=== PATIENT | female | born 1945 ===

== ENCOUNTER 2022-06-14 13:23 | Inpatient (IN) | payer MEDICARE, BC ==
[2022-06-14] MEDS ORDERED: Atropine Sulfate 1 mg/10 ml Syringe ONE ×2 (13:44→15:58)
[2022-06-14] MEDS ORDERED: DOBUTamine 500 mg/250 ml 0 ML ONE (14:32)
[2022-06-14 14:34] LABS: #Eosinphils 0.2 thou/uL (0.0-0.7); #Lymphocytes 0.8 thou/uL (1.20-3.40); #Monocytes 0.4 thou/uL (0.11-0.59); #Neutrophils 3.9 thou/uL (1.40-6.50); %Basophils 0.3 % (0.0-1.0); %Eosinophils 2.9 % (0.0-10.0); %Lymphocytes 15.8 % (21.0-51.0); %Monocytes 6.9 % (0.0-10.0); %Neutrophils 74.1 % (42.0-75.0); Hemoglobin 11.3 g/dL (12.0-16.0); Mean Corpuscular HGB CONC 32.3 g/dL (32.0-36.0); Mean Corpuscular Hemoglobin 32.3 pg (27.0-31.0); Mean Platelet Volume 8.6 fL (7.4-10.4); Platelet Count 247 10x3/uL (130-400); RBC Distribution Width 13.1 % (11.5-14.5); White Blood Cell (WBC) Count 5.2 10x3/uL (4.8-10.8)
[2022-06-14 14:49] LABS: ALT (SGPT) 22 U/L (8-55); AST (SGOT) 22 U/L (5-34); Albumin 3.6 g/dL (3.4-4.8); Alkaline Phosphatase 82 U/L (40-110); Anion Gap 13 mmol/L (10-20); BUN (Urea Nitrogen) 13 mg/dL (9.8-20.1); Bilirubin, Total 0.4 mg/dL (0.2-1.2); Calc. Creatinine Clearance 0 mL/min (70-130); Calcium 9.7 mg/dL (7.8-10.44); Carbon Dioxide 24 mmol/L (23-31); Chloride 101 mmol/L (98-107); Estimated GFR 77; Globulin 3.2 g/dL (2.4-3.5); Glucose 96 mg/dL (83-110); Magnesium 1.6 mg/dL (1.6-2.6); Potassium 3.6 mmol/L (3.5-5.1); Protein, Total 6.8 g/dL (5.8-8.1); Sodium 134 mmol/L (136-145)
[2022-06-14 14:49] LABS: INR-International Normal Ratio 1.1; Prothrombin Time 14.3 sec (12.0-14.7)
[2022-06-14 14:50] LABS: PTT 28.9 sec (22.9-36.1)
[2022-06-14 15:10] LABS: CKMB 2.2 ng/mL (0-6.6)
[2022-06-14] MEDS ORDERED: DOPamine 400 MG/D5W 250 ML 250 ML ONE (15:18)
[2022-06-14] MEDS ORDERED: Ondansetron PF 4 MG/2 ML Vial IVP PRN (15:59)
[2022-06-14] MEDS ORDERED: Acetaminophen 325 MG TAB PO PRN (15:59)
[2022-06-14 16:45] LABS: SARS-CoV-2 NAA Rapid Test Not Detected (NotDetected)
[2022-06-14] MEDS: Lactated Ringer's 1,000 ML IV SCH ×2 (17:31→18:07)
[2022-06-14] MEDS ORDERED: Lactated Ringer's 500 ML IV SCH (17:45)
[2022-06-14 17:50] LABS: Troponin I 0.031 ng/mL (< 0.028)
[2022-06-14] MEDS: Famotidine 20 MG TAB PO SCH (20:40)
[2022-06-14 21:32] LABS: Troponin I 0.035 ng/mL (< 0.028)
[2022-06-15 04:20] LABS: Hemoglobin 14.4 g/dL (12.0-16.0); Mean Corpuscular HGB CONC 32.9 g/dL (32.0-36.0); Mean Corpuscular Hemoglobin 32.8 pg (27.0-31.0); Mean Corpuscular Volume 99.6 fl (78.0-98.0); Mean Platelet Volume 8.5 fL (7.4-10.4); Platelet Count 241 10x3/uL (130-400); RBC Distribution Width 13.1 % (11.5-14.5); White Blood Cell (WBC) Count 6.1 10x3/uL (4.8-10.8)
[2022-06-15 04:33] LABS: Anion Gap 16 mmol/L (10-20); BUN (Urea Nitrogen) 10 mg/dL (9.8-20.1); Calc. Creatinine Clearance 69 mL/min (70-130); Calcium 10.1 mg/dL (7.8-10.44); Carbon Dioxide 24 mmol/L (23-31); Chloride 102 mmol/L (98-107); Estimated GFR 90; Glucose 105 mg/dL (83-110); Potassium 3.1 mmol/L (3.5-5.1); Sodium 139 mmol/L (136-145)
[2022-06-15 04:52] LABS: Eosinophils 3 % (0-10); Lymphocytes 24 % (21-51); MDiff Complete? YES; Monocytes 9 % (0-10); Neutrophil 63 % (42-75); Platelet Morphology Comment Appears Adequate; RBC Morphology Normal
[2022-06-15 05:05] VITALS: BMI 21.0
[2022-06-15] MEDS: Famotidine 20 MG TAB PO SCH ×2 (09:29→21:49)
[2022-06-15] MEDS ORDERED: Magnesium 2 GM/50 ML(in water) 2 GM in Premix Bag 1 BAG IVPB SCH (10:00)
[2022-06-15] MEDS: DOPamine 400 MG/D5W 250 ML 250 ML IVPB SCH (10:37)
[2022-06-15] MEDS: Potassium Chloride 20 MEQ in Premix Bag 1 BAG IVPB SCH (11:07)
[2022-06-15] MEDS ORDERED: Gentamicin 80 MG/2 ML VIAL ONE (11:13)
[2022-06-15] MEDS ORDERED: Lidocaine 1% (PF) 30 ML VIAL ONE (11:13)
[2022-06-15] MEDS ORDERED: CEFAZOLIN 2 GM VIAL ONE (11:13)
[2022-06-15] MEDS ORDERED: CEFAZOLIN 1 GM VIAL ONE (11:13)
[2022-06-15] MEDS ORDERED: Potassium Chloride 20 MEQ TAB PO SCH (13:15)
[2022-06-15] MEDS: Lactated Ringer's 1,000 ML IV SCH (17:24)
[2022-06-16 03:49] LABS: #Eosinphils 0.4 thou/uL (0.0-0.7); #Lymphocytes 1.8 thou/uL (1.20-3.40); #Monocytes 0.5 thou/uL (0.11-0.59); #Neutrophils 3.4 thou/uL (1.40-6.50); %Basophils 0.2 % (0.0-1.0); %Eosinophils 5.8 % (0.0-10.0); %Lymphocytes 30.2 % (21.0-51.0); %Monocytes 7.8 % (0.0-10.0); Hemoglobin 13.1 g/dL (12.0-16.0); Mean Corpuscular HGB CONC 32.4 g/dL (32.0-36.0); Mean Corpuscular Hemoglobin 31.8 pg (27.0-31.0); Mean Platelet Volume 8.5 fL (7.4-10.4); Platelet Count 242 10x3/uL (130-400); Red Blood Cell (RBC) Count 4.11 mill/uL (4.20-5.40); White Blood Cell (WBC) Count 6.1 10x3/uL (4.8-10.8)
[2022-06-16 04:06] LABS: Anion Gap 15 mmol/L (10-20); BUN (Urea Nitrogen) 9 mg/dL (9.8-20.1); Calc. Creatinine Clearance 76 mL/min (70-130); Carbon Dioxide 22 mmol/L (23-31); Chloride 102 mmol/L (98-107); Estimated GFR 92; Glucose 100 mg/dL (83-110); Magnesium 1.9 mg/dL (1.6-2.6); Potassium 4.1 mmol/L (3.5-5.1); Sodium 135 mmol/L (136-145)
[2022-06-16] MEDS ORDERED: Lidocaine 1% (PF) 30 ML VIAL ONE ×2 (09:59→15:50)
[2022-06-16] MEDS ORDERED: Gentamicin 80 MG/100 ML BAG ONE (09:59)
[2022-06-16] MEDS ORDERED: CEFAZOLIN 1 GM VIAL ONE ×3 (09:59→15:07)
[2022-06-16] MEDS ORDERED: Aggrastat 12.5 MG/250 ML 0 ML ONE (10:05)
[2022-06-16] MEDS: Famotidine 20 MG TAB PO SCH ×2 (10:30→23:00)
[2022-06-16] MEDS: DOPamine 400 MG/D5W 250 ML 250 ML IVPB SCH (10:43)
[2022-06-16] MEDS ORDERED: FENTANYL 50 MCG/ML 1 ML VIAL ONE ×2 (12:47→15:52)
[2022-06-16] MEDS ORDERED: Midazolam HCl 2 mg/2 ml Vial ONE ×2 (12:47→15:52)
[2022-06-16] MEDS ORDERED: Gentamicin 80 MG/2 ML VIAL ONE (15:07)
[2022-06-16] MEDS ORDERED: Iopamidol 370 76% 50 ML VIAL FS ONE (16:07)
[2022-06-16] MEDS ORDERED: Cyclobenzaprine 10 MG TAB PO PRN (17:19)
[2022-06-16] MEDS ORDERED: Atorvastatin Calcium 10 MG TAB PO SCH ×2 (21:00)
[2022-06-16] MEDS: Lactated Ringer's 1,000 ML IV SCH (22:07)
[2022-06-16] MEDS ORDERED: Acetaminophen 325 MG TAB PO PRN (22:46)
[2022-06-16] MEDS: Dicyclomine 20 MG TAB PO SCH (23:00)
[2022-06-16] MEDS ORDERED: Metoprolol Tartrate 50 MG TAB PO SCH (23:00)
[2022-06-17] MEDS: Potassium Chloride 20 MEQ in Premix Bag 1 BAG IVPB SCH (07:32)
[2022-06-17] MEDS: Dicyclomine 20 MG TAB PO SCH (08:38)
[2022-06-17] MEDS: Famotidine 20 MG TAB PO SCH (08:38)
[2022-06-17] MEDS ORDERED: Aspirin Chewable 81 MG TAB PO SCH (09:00)
[2022-06-17] MEDS ORDERED: Citalopram 20 MG TAB PO SCH (09:00)
[2022-06-17] MEDS ORDERED: Losartan/Hydrochlorothiazide 100 mg/25 mg Tablet PO SCH ×2 (09:00)
[2022-06-17] MEDS ORDERED: Calcium Carbonate 500 MG TAB PO SCH (09:00)
[2022-06-17] MEDS ORDERED: Estradiol 1 MG TAB PO SCH (09:00)
[2022-06-17] MEDS ORDERED: Metoprolol Tartrate 50 MG TAB PO SCH (09:00)
[2022-06-17] MEDS ORDERED: Cholecalciferol 1,000 UNITS (25 MCG) TAB PO SCH (09:00)
[2022-06-17 12:17] VITALS: TEMP 97.9
[2022-06-17 15:18] VITALS: BP 112/58
== END 2022-06-17 16:07 | disposition home or self-care (01) | DRG 244 ==
LOC: ERS 13:23 → CCU 15:21 → 2NO 06-16 20:11
PROVIDERS: ADMIT Internal Medicine; ATTEND Internal Medicine
PROC: 3E033XZ Introduction of Vasopressor into Peripheral Vein, Percutaneous Approach (ICD-10-PCS; 2022-06-14)
PROC: 0JH606Z Insertion of Pacemaker, Dual Chamber into Chest Subcutaneous Tissue and Fascia, Open Approach (ICD-10-PCS; principal; 2022-06-16)
PROC: 02H63JZ Insertion of Pacemaker Lead into Right Atrium, Percutaneous Approach (ICD-10-PCS; 2022-06-16)
PROC: 02HK3JZ Insertion of Pacemaker Lead into Right Ventricle, Percutaneous Approach (ICD-10-PCS; 2022-06-16)
DX: I49.5 Sick sinus syndrome (principal); Z20.822 Contact with and (suspected) exposure to COVID-19; I25.10 Atherosclerotic heart disease of native coronary artery without angina pectoris; K21.9 Gastro-esophageal reflux disease without esophagitis; I10 Essential (primary) hypertension; I48.0 Paroxysmal atrial fibrillation; E11.9 Type 2 diabetes mellitus without complications; Z95.1 Presence of aortocoronary bypass graft; Z98.890 Other specified postprocedural states; Z79.899 Other long term (current) drug therapy; Z79.82 Long term (current) use of aspirin; Z95.5 Presence of coronary angioplasty implant and graft; Z98.49 Cataract extraction status, unspecified eye; Z80.9 Family history of malignant neoplasm, unspecified
CPT/HCPCS: 33208; 36415; 71045; 80048; 80053; 82553; 83735; 83880; 84484; 85025; 85610; 85730; 93005; 93010; 93798; 96365; 99152; 99153; C1785; C1898; J0461; J0690; J1250; J1265; J1580; J1650; J2001; J2250; J2405; J3010; J3246; J3475; J3480; J7120; U0002